=== PATIENT | male | born 2000 | race Caucasian/White ===

== ENCOUNTER 2023-02-10 05:40 | Emergency (ER) | payer BC ==
[~2023-02-10] VITALS: Ht 188 cm; Wt 95.3 kg
[2023-02-10] MEDS ORDERED: ACETAMINOPHEN ES 500 MG TABLET ONE (06:24)
[2023-02-10] MEDS ORDERED: IBUPROFEN 200 MG TABLET ONE (06:25)
[2023-02-10] MEDS ORDERED: IBUPROFEN 400 MG TABLET PO ONE (06:30)
[2023-02-10] MEDS ORDERED: ACETAMINOPHEN ES 500 MG TABLET PO ONE (06:30)
[2023-02-10] MEDS ORDERED: KETO10TA2 PO (07:20)
[2023-02-10 07:46] VITALS: BP 118/66; TEMP 98.1; O2SAT 100
== END 2023-02-10 07:47 | disposition home or self-care (01) ==
LOC: ER 05:49
DX: R07.9 Chest pain, unspecified (principal)
CPT/HCPCS: 71045-TC